=== PATIENT | male | born 1940 | race Caucasian/White ===

== ENCOUNTER 2024-08-31 07:21 | Outpatient (CLI) | payer BC, SELFPAY ==
[2024-08-31] MEDS: albuterol 2.5 mg/3 mL Neb INHALATION (07:50)
== END 2024-08-31 07:22 | disposition home or self-care (01) ==
PROVIDERS: PCP Internal Medicine; Visit Provider Internal Medicine
DX: R06.02 Shortness of breath (principal); J98.8 Other specified respiratory disorders
CPT/HCPCS: 94060; 94726; 94729; J7613

== ENCOUNTER 2024-08-31 08:12 | Outpatient (CLI) | payer BC, SELFPAY ==
--- NOTE | 2024-08-31 08:17 | XRR_ITS ---
PROCEDURE INFORMATION: Exam: XR Chest Exam date and time: 08/31/2024 8:29 AM Age: 84 years old Clinical indication: Cough and dyspnea and wheezing; Prior surgery; Surgery date: 6+ months; Surgery type: Triple bypass; Coughing and wheezing with dyspnea on exertion since January 2024, HX of bladder cancer TECHNIQUE: Imaging protocol: Radiologic exam of the chest. Views: 2 views. COMPARISON: No relevant prior studies available. FINDINGS: Lungs: Mild hyperinflation with hyperlucency suggestive of emphysema. No focal consolidation. Pleural spaces: No pleural effusion. No pneumothorax. Heart/Mediastinum: Cardiomegaly. Diffuse mediastinal surgical rosario suggestive of prior CABG. Vasculature: Tortuous calcified aorta. Bones/joints: Median sternotomy wires are intact. Diffuse degenerative change of the thoracic spine and bilateral shoulders. XR/XR chest 2V* [id number] IMPRESSION: No acute cardiopulmonary findings.
== END 2024-08-31 08:13 | disposition home or self-care (01) ==
LOC: RAD 08:14
PROVIDERS: PCP Internal Medicine; Visit Provider Internal Medicine
DX: R06.2 Wheezing (principal); R91.8 Other nonspecific abnormal finding of lung field; I51.7 Cardiomegaly; Q25.46 Tortuous aortic arch; Z98.890 Other specified postprocedural states; M47.894 Other spondylosis, thoracic region; M19.012 Primary osteoarthritis, left shoulder; M19.011 Primary osteoarthritis, right shoulder
CPT/HCPCS: 71046

== ENCOUNTER 2024-11-30 14:55 | Outpatient (CLI) | payer BC, SELFPAY ==
--- NOTE | 2024-11-30 15:01 | XRR_ITS ---
PROCEDURE INFORMATION: Exam: XR Bilateral Hips Exam date and time: 11/30/2024 3:11 PM Age: 84 years old Clinical indication: Hip pain; Bilateral; Additional info: Pain in left hip, pain in right hip TECHNIQUE: Imaging protocol: Radiologic exam of the bilateral hips. Views: 2 views of hips with pelvis when performed. COMPARISON: No relevant prior studies available. FINDINGS: Bones/joints: No acute fracture. [id number] DJD of both hips. Soft tissues: Unremarkable. XR/XR hip BI 3-4V wo/w pel [id number] IMPRESSION: No acute findings. [id number]-hg-[id number] DJD of both hips.
== END 2024-11-30 14:56 | disposition home or self-care (01) ==
PROVIDERS: PCP Internal Medicine; Visit Provider Internal Medicine
DX: M16.0 Bilateral primary osteoarthritis of hip (principal)
CPT/HCPCS: 73522

== ENCOUNTER → 2024-12-01 12:16 | Outpatient (BNVA) | payer BC, SELFPAY | PROVIDERS: PCP Internal Medicine; Visit Provider Internal Medicine Cardiovascular Disease | DX: R07.9 Chest pain, unspecified (principal); R94.31 Abnormal electrocardiogram [ECG] [EKG] | CPT/HCPCS: 93005 ==

== ENCOUNTER 2024-12-24 06:53 | Outpatient (CLI) | payer BC, SELFPAY ==
--- NOTE | 2024-12-24 | ECG_ITS ---
[facility] Date: 2024-12-24 Pat Name: Lacho Loving Department: Room: Gender: Male Medical Device: : 1940 Requested By: Nidia Cho Order Number: [id number] Reading MD: NIDIA CHO Interpretive Statements Lung unchanged pre/post procedure; Intraprocedure shortess of breath; Symptoms resoled by discharge NOTE: Please note that this is the electrocardiogram portion of the Lexiscan/Sestamibi stress test. The perfusion scan will be documented separately. DATA: Baseline heart rate was 67 beats per minute. Baseline blood pressure was 183/87 millimeters of mercury. Target heart rate was 138. Maximum heart rate achieved was 107. which was 77% of the predicted target heart rate. Maximum blood pressure was 187/87 millimeters of mercury. The reason for ending the test was completion of the protocol. The patient did not experience any symptoms. ELECTROCARDIOGRAM: BASELINE: Sinus rhythm. Normal axis. Otherwise, no ST-T changes suggestive of ischemia noted. No arrhythmia noted. EXERCISE: After Lexiscan injection, no ST-T changes suggestive of ischemic noted. Frequent PVCs were noted CONCLUSION: Please note due to baseline abnormality of the EKG specificity and sensitivity of the EKG portion of LexiScan MIBI stress test will be low 1. EKG not suggestive of ischemia 2. Lexiscan injection unremarkable. 3. Perfusion scan will be documented separately. Electronically Signed On 01-02-2025 21:27:13 CDT by NIDIA CHO [email or web address]
--- NOTE | 2024-12-24 07:00 | USCV_ITS ---
Lacho Loving Age: 84 Gender: M : 1940 Exam Date: 12/24/2024 07:23 Ordering Phys: Nidia Cho MD ([email or web address]) Technologist: Gallito Puliod Exam Location: [place] Indication: sob BP: 158 / 78 HR: 54 Rhythm: Sinus Technical Quality: Adequate MEASUREMENTS (Male / Female) Normal Values 2D ECHO LV Diastolic Diameter PLAX 4.2 cm 4.2 - 5.9 / 3.9 - 5.3 cm IVS Diastolic Thickness 1.1 cm 0.6 - 1.0 / 0.6 - 0.9 cm IVS Systolic Thickness 1.1 cm LVPW Diastolic Thickness 1.2 cm 0.6 - 1.0 / 0.6 - 0.9 cm LVPW Systolic Thickness 1.9 cm LVOT Diameter 2.0 cm LV Ejection Fraction 2D Teich 61.7 % LV Ejection Fraction MOD 4C 66.7 % LV Ejection Fraction MOD 2C 68.1 % LV Ejection Fraction 2C AL 70.9 % LA Diameter 3.4 cm RA Systolic Volume 4C AL 26.4 ml RA Systolic Volume 4C MOD 26.0 ml LA Sys Volume AL 36.8 cm cubed LA Sys Volume Index AL 17.9 cm cubed/m squared Aorta at Sinotubular Diameter 2.3 cm IVC Diameter 1.4 cm M-MODE LA Ao Ratio MM 1.2 AV Cusp Separation MM 1.8 cm DOPPLER AV Peak Velocity 152.7 cm/s LVOT Peak Velocity 101.0 cm/s AV Area Cont Eq vti 2.0 cm squared AV Area Cont Eq pk 2.1 cm squared MV Peak Velocity 116.0 cm/s MV Area PHT 5.7 cm squared Mitral E to A Ratio 0.5 TV Peak Velocity 159.5 cm/s TR Peak Velocity 200.0 cm/s TR Peak Gradient 16.0 mmHg TR Mean Velocity 155.0 cm/s TR Mean Gradient 11.0 mmHg TR Velocity Time Integral 55.3 cm PV Peak Velocity 67.0 cm/s RV Ejection Time 0.3 s FINDINGS Left Ventricle Normal left ventricular size, systolic function and wall thickness, with no regional wall motion abnormalities. Left ventricular ejection fraction is estimated at 60 %. Grade I/IV diastolic dysfunction (abnormal relaxation filling pattern), normal to mildly elevated filling pressures. Right Ventricle The right ventricle is normal in size and function. Right Atrium The right atrium is normal in size. Left Atrium The left atrium is normal in size. Mitral Valve Moderately thickened mitral valve. Moderate mitral annular calcification. No mitral valve stenosis. Trace mitral valve regurgitation. Aortic Valve Moderate aortic valve calcification. Mild aortic valve stenosis, mean gradient 4.9 mmHg, FAMILIA 2 cm squared. Trace aortic valve regurgitation. Tricuspid Valve Structurally normal tricuspid valve without significant stenosis or regurgitation. Pulmonary artery systolic pressure is normal. Pulmonic Valve Structurally normal pulmonic valve without significant stenosis. There is no pulmonic regurgitation. Pericardium Normal pericardium without effusion. Aorta Normal ascending aorta dimension. IVC The inferior vena cava appears normal. CONCLUSIONS Normal left ventricular size, systolic function and wall thickness, with no regional wall motion abnormalities. Left ventricular ejection fraction is estimated at 60 %. Grade I/IV diastolic dysfunction (abnormal relaxation filling pattern), normal to mildly elevated filling pressures. Moderately thickened mitral valve. Moderate mitral annular calcification. No mitral valve stenosis. Trace mitral valve regurgitation. There is no pericardial effusion. Right atrial pressure is around 5 mm of mercury. Nidia Cho MD (Electronically Signed) Final Date: 01 January 2025 19:02 S
--- NOTE | 2024-12-24 07:18 | NMCV_ITS ---
NM alistair perf SPECT r/s* [id number] Lacho Loving Age: 84 Gender: M : 1940 Exam Date: 12/24/2024 08:58 Ordering Phys: Nidia Cho MD ([email or web address]) Technologist: SONIDO Maya Exam Location: [facility] Indications: cp STRESS TEST Please see separate stress test report in [facility] for full findings IMAGE PROTOCOL Rest/Stress 1 Lexiscan Day Radiopharmaceutical Dose (mCi) Administration Site Administered by Rest: Tc-99m 10.9 IV Latoya Burnett WEB WEAVER Sestamibi Stress:Tc-99m 32.7 IV Latoya Burnett, WEB WEAVER Sestamibi Rest: 24-Dec-2024 60 Discovery 630 Stress: 24-Dec-2024 30 Discovery 630 0.4mg Lexiscan. Images obtained in supine and prone position. SPECT RESULTS Technical Quality: Good Raw Data Analysis: Normal Image Corrections: No attenuation or motion correction applied Summed Stress Score: 11 Summed Rest Score: 7 Summed Difference Score: 5 PERFUSION FINDINGS Large area of fixed perfusion defect noted in basal to mid inferior inferolateral wall suggestive of old myocardial infarction versus scarring without serge-infarct ischemia. FUNCTIONAL RESULTS (calculated via Gated SPECT) Stress Image LV EF (%): 55 Stress EDV (mL):131 TID: 0.94 Stress ESV (mL):59 FUNCTIONAL FINDINGS: Basal to mid inferior and inferolateral wall akinesis IMPRESSIONS Large area of fixed perfusion defect noted in basal to mid inferior inferolateral wall suggestive of old myocardial infarction versus scarring without serge-infarct ischemia. Nidia Cho MD (Electronically Signed) Final Date: 31 December 2024 19:13 S
[2024-12-24 08:03] VITALS: BMI 28.2
[2024-12-24] MEDS: regadenoson 0.4 Mg/5 ml Syringe IVP (09:50)
[2024-12-24 10:08] VITALS: BP 176/78; PULSE 83
== END 2024-12-24 06:54 | disposition home or self-care (01) ==
LOC: RAD 06:54 → CDL 07:14
PROVIDERS: PCP Internal Medicine; Visit Provider Internal Medicine Cardiovascular Disease
DX: R07.9 Chest pain, unspecified (principal); R06.02 Shortness of breath; R93.1 Abnormal findings on diagnostic imaging of heart and coronary circulation; I34.81 Nonrheumatic mitral (valve) annulus calcification; I35.8 Other nonrheumatic aortic valve disorders; I35.0 Nonrheumatic aortic (valve) stenosis
CPT/HCPCS: 36415; 78452; 93017; 93306; 96374; A9500; J2785